=== PATIENT | female | born 1985 | race Caucasian/White ===

== ENCOUNTER 2025-04-01 07:48 | Emergency (ER) | payer SELFPAY ==
[~2025-04-01] VITALS: Ht 170.2 cm; Wt 56.8 kg
[2025-04-01 07:49] VITALS: BP 145/100; PULSE 88; RESP 18; TEMP 98.2; O2SAT 97
== END 2025-04-01 07:50 | disposition left against medical advice (07) ==
LOC: ER 07:48
DX: T40.411A Poisoning by fentanyl or fentanyl analogs, accidental (unintentional), initial encounter (principal); Y92.89 Other specified places as the place of occurrence of the external cause; Z53.21 Procedure and treatment not carried out due to patient leaving prior to being seen by health care provider
CPT/HCPCS: 99281